=== PATIENT | male | born 1970 ===

== ENCOUNTER 2017-01-18 09:11 | Emergency (ER) | payer OTHER ==
[2017-01-18 09:17] VITALS: BP 146/78; TEMP 97; O2SAT 98
[2017-01-18 09:18] VITALS: BMI 28.8
[2017-01-18 09:22] VITALS: PULSE 64; RESP 20
--- NOTE | 2017-01-18 09:40 | ED PDOC ---
HPI: General Adult Time Seen by Provider: 01/18/17 09:20 Chief Complaint (Nursing): Abnormal Skin Integrity Chief Complaint (Provider): rectal pain History Per: Patient History/Exam Limitations: no limitations Onset/Duration Of Symptoms: Days (x 2) Have you had recent travel within the past 21 days to any of the following countries: [place], [place], [place] or [place]?: No Additional Complaint(s): Amrit Bauer is a 46 year old male, with no previous medical history, who presents to the ED with complaints of rectal pain ongoing for 2 days. Patient denies any rectal bleeding, fever or abdominal pain. He experiencing similar symptoms in the past associated with rectal bleeding. Patient reports pain is worse with defecation. PMD: none provided Past Medical History Reviewed: Historical Data, Nursing Documentation, Vital Signs Vital Signs: Last Vital Signs Temp 97 F L 01/18/17 09:20 Pulse 64 01/18/17 09:20 Resp 20 01/18/17 09:20 BP 146/78 01/18/17 09:20 Pulse Ox 98 01/18/17 09:43 - Medical History PMH: No Chronic Diseases - Family History Family History: States: Unknown Family Hx - Home Medications Home Medications: Ambulatory Orders Medication Instructions Recorded Hydrocortisone 2.5% (Rectal) 30 applic NM BID #1 tube 01/18/17 [Anusol-HC] traMADol [Ultram] 50 mg PO Q8 #10 tab 01/18/17 - Allergies Allergies/Adverse Reactions: Allergies Allergy/AdvReac Type Severity Reaction Status Date / Time No Known Allergies Allergy Verified 01/18/17 09:20 Review of Systems ROS Statement: Except As Marked, All Systems Reviewed And Found Negative Constitutional: Negative for: Fever Gastrointestinal: Positive for: Rectal Pain (with no bleeding ). Negative for: Abdominal Pain Physical Exam - Reviewed Nursing Documentation Reviewed: Yes Vital Signs Reviewed: Yes - Physical Exam Appears: Positive for: Well, Non-toxic, No Acute Distress Skin: Positive for: Normal Color, Warm, Dry Cardiovascular/Chest: Positive for: Regular Rate, Rhythm Respiratory: Positive for: CNT, Normal Breath Sounds Gastrointestinal/Abdominal: Positive for: Normal Exam, Bowel Sounds, Soft. Negative for: Tenderness Rectal: Positive for: Other (external hemorrhoid with no bleeding ). Negative for: Mass (internal) Neurologic/Psych: Positive for: Alert, Oriented - ECG O2 Sat by Pulse Oximetry: 98 (RA) Pulse Ox Interpretation: Normal Medical Decision Making Medical Decision Making: Initial Impression: rectal pain Initial Plan: * physical exam * disposition Scribe Attestation: Documented by Ingrid Ayala, acting as a scribe for Karlos Cornelius MD. Provider Scribe Attestation: All medical record entries made by the Scribe were at my direction and personally dictated by me. I have reviewed the chart and agree that the record accurately reflects my personal performance of the history, physical exam, medical decision making, and the department course for this patient. I have also personally directed, reviewed, and agree with the discharge instructions and disposition. Disposition - Clinical Impression Clinical Impression: Hemorrhoid - Disposition Referrals: Thierry Morales MD [Staff Provider] - Disposition Time: 09:40 Condition: FAIR Prescriptions: Hydrocortisone 2.5% (Rectal) [Anusol-HC] 30 applic NM BID #1 tube traMADol [Ultram] 50 mg PO Q8 #10 tab Instructions: Hemorrhoids (ED) Print Language: IRISH
== END 2017-01-18 10:18 | disposition home or self-care (01) ==
LOC: H.ER 09:11
DX: K64.9 Unspecified hemorrhoids (principal)